=== PATIENT | male | born 1970 | race Hispanic/Latino ===

== ENCOUNTER 2017-01-08 23:23 | Emergency (ER) | payer BC, SELFPAY ==
--- NOTE | 2017-01-08 23:53 | RAD ---
FOUR VIEWS RIGHT KNEE 01/08/17 HISTORY: Patient had recent surgery, infection. AP, lateral and both oblique views right knee is obtained. Images demonstrate soft tissue swelling surrounding the right knee. There is a suprapatellar joint e ffusion seen. Osteophytes seen in the lateral aspect of the right knee. No acute bony lesions seen. IMPRESSION: Extensive soft tissue swelling. POS: BRE
[2017-01-09 00:14] LABS: #Basophils 0.1 thou/uL (0.0-0.2); #Eosinphils 0.6 thou/uL (0.0-0.7); #Lymphocytes 1.8 thou/uL (1.20-3.40); #Monocytes 0.7 thou/uL (0.11-0.59); #Neutrophils 8.2 thou/uL (1.40-6.50); %Basophils 0.9 % (0.0-1.0); %Monocytes 5.9 % (0.0-10.0); %Neutrophils 72.1 % (42.0-75.0); Hemoglobin 8.7 g/dL (14.0-18.0); Mean Corpuscular HGB CONC 32.8 g/dL (32.0-36.0); Mean Corpuscular Hemoglobin 28.1 pg (27.0-31.0); Mean Corpuscular Volume 85.7 fl (80.0-94.0); Mean Platelet Volume 5.1 fL (7.4-10.4); Platelet Count 585 thou/uL (130-400); Red Blood Cell (RBC) Count 3.09 mill/uL (4.70-6.10); White Blood Cell (WBC) Count 11.3 thou/uL (4.8-10.8)
[2017-01-09 00:29] LABS: ALT (SGPT) 37 U/L (8-55); AST (SGOT) 25 U/L (5-34); Albumin 3.4 g/dL (3.5-5.0); Alkaline Phosphatase 138 U/L (40-150); Anion Gap 15 mmol/L (10-20); BUN (Urea Nitrogen) 27 mg/dL (8.9-20.6); Bilirubin, Total 0.3 mg/dL (0.2-1.2); Calc. Creatinine Clearance 0 mL/min (70-130); Calcium 8.9 mg/dL (7.8-10.44); Carbon Dioxide 19 mmol/L (22-29); Chloride 104 mmol/L (98-107); Estimated GFR-MDRD 37; Globulin 4.8 g/dL (2.4-3.5); Glucose 310 mg/dL (70-105); Potassium 4.3 mmol/L (3.5-5.1); Protein, Total 8.2 g/dL (6.0-8.3); Sodium 134 mmol/L (136-145)
[2017-01-09] MEDS ORDERED: Acetaminophen/Codeine 30-300mg Tablet ONE (01:26)
== END 2017-01-09 01:40 | disposition home or self-care (01) ==
LOC: NAV ERS 23:23
DX: M25.561 Pain in right knee (principal); E10.9 Type 1 diabetes mellitus without complications; Z87.442 Personal history of urinary calculi
CPT/HCPCS: 80053; 85025; 85652; 86140